=== PATIENT | female | born 1950 | race Caucasian/White ===

== ENCOUNTER → 2020-10-01 | Outpatient (CLI) | payer MEDICARE, OTHER | LOC: HEART 5 09-14 13:30 | DX: I20.8 Other forms of angina pectoris (principal); R53.83 Other fatigue; I27.20 Pulmonary hypertension, unspecified; R94.39 Abnormal result of other cardiovascular function study; I07.1 Rheumatic tricuspid insufficiency; I11.9 Hypertensive heart disease without heart failure | CPT/HCPCS: 78452; 93306; A9502; J2785 ==